=== PATIENT | female | born 1975 | race Hispanic/Latino ===

== ENCOUNTER 2018-03-13 19:04 | Emergency (ER) | payer OTHER ==
[2018-03-13 19:21] VITALS: BP 135/82; RESP 16; O2SAT 96
[2018-03-13] MEDS ORDERED: Sodium Chloride 0.9% 1,000 ML IV STA (20:02)
--- NOTE | 2018-03-13 20:40 | ED PDOC ---
HPI: Influenza Time Seen by Provider: 03/13/18 19:40 Chief Complaint: Flu-like Symptoms Chief Complaint (Provider): Flu-like Symptoms History Per: Patient Exam Limitations: no limitations Onset/Duration Of Symptoms: Days (x3) Symptoms include: fever. denies: cough Additional complaint(s):: 42 year old female, with a past medical history of HIV, presents to the ED complaining of fever for 3 days. Patient states she had a temperature of 103 at home and has been taking Aleve. She reports being constantly exhausted and would get up from bed to go to the bathroom and be tired after and return back to bed. Denies coughing but normally coughs due to her roommate smoking. Denies throat pain, ear pain, and abdominal pain. PMD: Corby Rapp Past Medical History Reviewed: Historical Data, Nursing Documentation, Vital Signs Vital Signs: Last Vital Signs Temp 101.7 F H 03/13/18 19:19 Pulse 116 H 03/13/18 19:19 Resp 16 03/13/18 19:19 BP 135/82 03/13/18 19:19 Pulse Ox 96 03/13/18 19:19 - Medical History PMH: HIV - Surgical History Surgical History: No Surg Hx - Family History Family History: States: Unknown Family Hx - Home Medications Home Medications: Ambulatory Orders Medication Instructions Recorded Azithromycin [Zithromax] 250 mg PO DAILY #4 tab 03/13/18 - Allergies Allergies/Adverse Reactions: Allergies Allergy/AdvReac Type Severity Reaction Status Date / Time Penicillins Allergy HEADACHE Verified 03/13/18 19:19 Review of Systems ROS Statement: Except As Marked, All Systems Reviewed And Found Negative Constitutional: Positive for: Fever ENT: Negative for: Ear Pain, Throat Pain Respiratory: Negative for: Cough Gastrointestinal: Negative for: Abdominal Pain Psych: Positive for: Other (Exhausted) Physical Exam - Reviewed Nursing Documentation Reviewed: Yes Vital Signs Reviewed: Yes - Physical Exam Appears: Positive for: Non-toxic, No Acute Distress Head Exam: Positive for: ATRAUMATIC, NORMOCEPHALIC Skin: Positive for: Normal Color, Warm, Dry Eye Exam: Positive for: Normal appearance Neck: Positive for: Normal, Painless ROM Cardiovascular/Chest: Positive for: Regular Rate, Rhythm. Negative for: Murmur , Bradycardia, Tachycardia Respiratory: Positive for: Normal Breath Sounds. Negative for: Wheezing, Respiratory Distress Extremity: Positive for: Normal ROM Neurologic/Psych: Positive for: Alert, Oriented. Negative for: Motor/Sensory Deficits Medical Decision Making Medical Decision Making: Initial Impression: Fever Initial Plan: --CMP --CBC --Chest X-ray --Sodium chloride 1000mL IV --Tylenol 975mg PO --Blood culture --Influenza A B Stat Scribe Attestation: Documented by Rodri Pfeiffer acting as a scribe for Bisi WILEY. Provider Scribe Attestation: All medical record entries made by the Scribe were at my direction and personally dictated by me. I have reviewed the chart and agree that the record accurately reflects my personal performance of the history, physical exam, medical decision making, and the department course for this patient. I have also personally directed, reviewed, and agree with the discharge instructions and disposition. - Laboratory Results Result Diagrams: 03/13/18 20:30 03/13/18 20:30 - ECG O2 Sat by Pulse Oximetry: 96 (RA) Pulse Ox Interpretation: Normal Disposition - Clinical Impression Clinical Impression: Bacterial respiratory infection - Patient ED Disposition Is Patient to be Admitted: No Counseled Patient/Family Regarding: Diagnosis, Need For Followup, Rx Given - Disposition Referrals: [facility] [Outside] Disposition: Routine/Home Disposition Time: 23:28 Condition: STABLE Prescriptions: Azithromycin [Zithromax] 250 mg PO DAILY #4 tab Instructions: Bacterial Upper Respiratory Infection, Adult Forms: [employer] (Bulgarian)
[2018-03-13 20:44] LABS: BASO % 0.3 % (0.0-2.0); EOS % 0.1 % (0.0-4.0); HEMOGLOBIN 10.8 g/dL (12.0-16.0); LYMPH # 1.2 K/uL (1.0-4.3); LYMPH % 9.7 % (20.0-40.0); MEAN CELL VOLUME 75.9 fl (81.0-99.0); MEAN CORPUSCULAR HEMOGLOBIN 24.5 pg (27.0-31.0); MEAN CORPUSCULAR HGB CONC 32.2 g/dL (33.0-37.0); MEAN PLATELET VOLUME 8.1 fl (7.2-11.7); MONO # 0.6 K/uL (0.0-0.8); MONO % 5.2 % (0.0-10.0); NEUT # 10.2 K/uL (1.8-7.0); NEUT % 84.7 % (50.0-75.0); PLATELET COUNT 269 K/uL (130-400); RBC 4.43 Mil/uL (3.80-5.20); RED CELL DISTRIBUTION WIDTH 17.2 % (11.5-14.5); WHITE BLOOD COUNT 12.1 K/uL (4.8-10.8)
[2018-03-13 20:54] LABS: ALB/GLOB RATIO 1.3 (1.0-2.1); ALBUMIN 4.4 g/dL (3.5-5.0); ALT/SGPT 30 U/L (9-52); AST/SGOT 23 U/L (14-36); BLOOD UREA NITROGEN 4 mg/dl (7-17); CALCIUM 9.2 mg/dL (8.4-10.2); GFR NON-AFRICAN AMERICAN > 60
[2018-03-13 21:27] LABS: LYMPHOCYTE 8 % (20-50); MONOCYTE 5 % (0-10); NEUTROPHIL 87 % (42-75); TOTAL CELLS COUNTED 100
[2018-03-13 21:28] LABS: PLATELET ESTIMATE NORMAL (NORMAL)
[2018-03-13 21:32] LABS: ANISOCYTOSIS SLIGHT
[2018-03-13 22:42] VITALS: TEMP 99.6
[2018-03-13 23:27] VITALS: PULSE 90
--- NOTE | 2018-03-14 08:34 | RAD ---
HISTORY: COMPARISON: No prior. TECHNIQUE: Chest PA and lateral FINDINGS: LINES AND TUBES: None. LUNG AND PLEURA: The lungs are well inflated and clear. There is discoid atelectasis in the left mid lung. No pleural effusion or pneumothorax. HEART AND MEDIASTINUM: The heart is not enlarged. The hilar and mediastinal contours are within normal limits. SKELETAL STRUCTURES: The bony structures are within normal limits for the patient's age. VISUALIZED UPPER ABDOMEN: Normal. OTHER FINDINGS: None. IMPRESSION: No active pulmonary disease.
== END 2018-03-13 23:30 | disposition home or self-care (01) ==
LOC: H.ER 19:04
DX: J06.9 Acute upper respiratory infection, unspecified (principal)
CPT/HCPCS: 71046; 80053; 85025; 87040; 87804; 96360; 99282; J7030